=== PATIENT | male | born 1970 | race Caucasian/White ===

== ENCOUNTER 2018-05-22 15:49 | Emergency (ER) | payer OTHER, SELFPAY ==
[2018-05-22 15:49] VITALS: BP 166/105; PULSE 107; RESP 14; TEMP 36.5; O2SAT 99; BMI 25.8
--- NOTE | 2018-05-22 16:06 | EKG12_ITS ---
Test Reason : CHEST PAIN Blood Pressure : / mmHG Vent. Rate : 104 BPM Atrial Rate : 104 BPM P-R Int : 168 ms QRS Dur : 090 ms QT Int : 336 ms P-R-T Axes : 062 057 044 degrees QTc Int : 441 ms Sinus tachycardia Otherwise normal ECG Confirmed by RIGOBERTO COURTNEY MD ([id number]), legal editor NAOMI MARTIN ([id number] on 05/27/2018 2:41:28 PM Referred By: Confirmed By:RIGOBERTO COURTNEY MD
--- NOTE | 2018-05-22 16:07 | RAD_ITS ---
STUDY: X-RAY CHEST REASON FOR EXAM: Male, 47 years old. Chest pain, SOB. TECHNIQUE: Portable chest. COMPARISON: None. FINDINGS: The lungs are clear and expanded. There is no demonstrated pleural abnormality. Normal size heart. Normal mediastinum and shaina. Normal visualized pulmonary arteries. Normal visualized aortic arch and descending thoracic aorta. Mild degenerative changes of the left shoulder are noted. Soft tissues and bony structures are otherwise unremarkable. RAD/Chest 1 View (Portable) IMPRESSION: No acute process. Electronically Signed: Alize Noe MD at 16:30 EDT Tel , Service support ,
[2018-05-22 16:31] LABS: Absolute Lymphocyte Count 1.55 X10^3/ul (0.83-4.51); Basophil# 0.02 X10^3/uL; Basophil% 0.2 % (0-1); Eosinophil# 0.03 X10^3/uL; Eosinophils% 0.3 % (0-5); Lymphocyte # 1.55 X10^3/ul (4.0); Lymphocyte % 17.1 % (19-41); Mean Corp Hgb Conc 34.8 g/gl (32-36); Mean Corpuscular Hgb 28.3 pg (27.0-32.0); Mean Corpuscular Volume 81.4 fL (80-94); Mean Platelet Vol. 9.3 fl (6.2-12.0); Monocyte# 0.46 X10^3/uL; Monocyte% 5.1 % (0-10); Neutrophil # 6.99 X10^3/uL (2.7-7.7); Neutrophil % 77.2 % (47-70); Platelet Count 156 K/mm3 (150-450); RBC Distribution Width SD 38.3 fl (35.1-43.9); Red Blood Count 5.65 M/mm3 (4.6-6.2); White Blood Count 9.1 K/mm3 (4.4-11.0)
[2018-05-22 16:32] LABS: POSITIVE COUNT NO; POSITIVE DIFFERENTIAL NO; POSITIVE MORPHOLOGY NO
[2018-05-22] MEDS: 0.9% Normal Saline 1,000 ML 1000 ML IV (17:02)
[2018-05-22 17:11] LABS: ALB/GLOB Ratio 1.2 RATIO (0.9-2.4); AST(SGOT) 28 U/L (15-37); Alanine Aminotransfer ALT/SGPT 48 U/L (16-61); Albumin, Serum 4.5 g/dL (3.2-5.0); Alkaline Phosphatase 70 U/L (45-117); Anion Gap 8 (5-15); BUN 12 mg/dL (7-18); BUN/Creat Ratio 9.8 RATIO (10-20); Chloride 102 mmol/L (98-107); Creatinine, Serum 1.23 mg/dL (0.70-1.30); EST Glomerular Filtration Rate 67 mL/min (>60); Est Glom Filt Rate - Afr Amer 81 mL/min (>60); Estimated Creatinine Clearance 77.48 ml/min; Globulin 3.8 g/dL (2.2-4.2); Glucose 126 mg/dL (74-106); Lipase 248 U/L (73-393); Potassium 3.8 mmol/L (3.5-5.1); Protein, Total 8.3 g/dL (6.4-8.2); Sodium Level 138 mmol/L (136-145)
[2018-05-22 17:11] LABS: Bacteria 0 SEEN /hpf (None Seen); Mucous, Urine 0 SEEN /hpf (<or=2+); Red Blood Cells-Urine 0 SEEN /hpf (0-5); Squamous Epithelial Cells - UA 0 SEEN /hpf (0-5); White Blood Cells 0 SEEN /hpf (0-5)
[2018-05-22 17:13] LABS: Color, Urine Yellow (Yellow); Glucose, Dipstick Normal (Normal); Ketone-Dipstick Negative (Negative); Leukocyte Esterase-Dipstick Negative /ul (Negative); Nitrite-Dipstick Negative (Negative); Occult Blood-Urine Negative /ul (Negative); Protein-Dipstick Negative (Negative); Urine Bilirubin Dipstick Negative (Negative); Urine Clarity Clear (Clear); Urine Urobilinogen Normal (Normal)
[2018-05-22 17:46] VITALS: BP 146/93; PULSE 73; RESP 12; O2SAT 99
[2018-05-22 18:17] VITALS: BP 158/92; PULSE 68; RESP 14; O2SAT 99
--- NOTE | 2018-05-22 18:29 | ED.DCSUM_ITS ---
- ER Visit Summary Date of Service: 05/22/18 Chief Complaint: Feeling bad History of Present Illness: The patient is a 47 M with multiple complaints. He reports chest pain that started yesterday. It has been constant. Today he has trouble focusing. He feels some anterior neck pain like he is choking. He also has a headache which he describes as numbness around his ears bilaterally. He also reports worsening of his acid reflux and diffuse abdominal pain. He never had this in the past. Nothing seems to make it better or worse. No significant past medical history. He does use marijuana. He does report associated chills and sweats with a dry cough. Physical Examination: Afebrile and vital signs unremarkable except for a blood pressure of 166/105 and heart rate of 107. Patient appears uncomfortable and depressed, but otherwise is in no acute distress. Alert and oriented. Heart regular rate and rhythm on my exam. Lungs clear bilaterally. Abdomen soft and nontender throughout all garibay. No guarding or rebound. Skin appears normal in color without diaphoresis, pallor, or jaundice. Extremities nontender. Test Results: EKG shows sinus rhythm at a rate of 104. CBC and CMP normal. Lipase normal. Urinalysis normal. Troponin normal. Glucose was 126. Chest x- ray showed no acute process. Emergency Department Course and Treatment: Patient was treated with IV fluids and Zofran while awaiting results. Patient had a multitude of complaints and so my initial differential diagnosis was broad. I did check all the above testing, and everything seemed fairly unremarkable. He is otherwise young and healthy. Prior to discharge, I reevaluated him. His vital signs have improved. No new or worsening symptoms. Cranial nerves grossly intact. No focal weakness. Moves all extremities. Speech is normal. No vision changes. No new pains. No nausea. No sweats. Patient declined delta troponin. We discussed risks and benefits of further testing and even hospitalization. I believe he is appropriate for outpatient follow-up. Patient agrees. Stay rested and hydrated. [id number] remedies for symptoms. He may be coming down with an influenza type illness. Treatment Plan: As above Disposition: Discharged Impression: 1. Influenza-like illness This note was generated with [employer] software. It may contain incorrect words, spelling, and punctuation that were not noted in review of the chart prior to signing ED Disposition - Plan for ED Patient: Chief Complaint: Chest Pain Instructions: ED Chest Pain Atypical Unkn Cause Prescriptions: Ibuprofen [Motrin] 800 mg PO TID PRN PRN #20 tab PRN Reason: Pain Referrals: Shahzad Murguia III, MD [STAFF PHYSICIAN] -
[2018-05-22 18:44] VITALS: BP 158/92; PULSE 64; RESP 18; O2SAT 99
== END 2018-05-22 18:45 | disposition home or self-care (01) ==
PROVIDERS: Emergency Provider Emergency Medicine
DX: R51 Headache (principal); R05 Cough; R10.84 Generalized abdominal pain; R07.9 Chest pain, unspecified; R68.83 Chills (without fever); R61 Generalized hyperhidrosis; M54.2 Cervicalgia; K21.9 Gastro-esophageal reflux disease without esophagitis; F12.90 Cannabis use, unspecified, uncomplicated
CPT/HCPCS: 71045; 80053; 81001; 83690; 84484; 85025; 93005; 96360; 99284; J2405

== ENCOUNTER 2024-11-12 09:06 | Emergency (ER) | payer MEDICAID, SELFPAY ==
[2024-11-12 09:07] VITALS: BP 149/89; PULSE 107; RESP 16; TEMP 36.1; O2SAT 98
--- NOTE | 2024-11-12 11:00 | EDS_ITS ---
HPI History of Present Illness Chief Complaint: General Illness Informant: patient Onset/Context/Timing Onset: Days Context: Gradual Onset Timing: Continuous Current Severity: Mild Maximum Severity: Mild Narrative Narrative: 54-year-old male prior cholecystectomy years ago. Denies any past medical history. Please note a cough of phlegm. Also complaining of dysuria. And has had intermittent nausea vomiting diarrhea since Sunday. Says the phlegm is green. Prior similar symptoms: Yes Recent Illness/Hospitalization: No PFSH PFSH Medical History no medical history no medical history Home Medications ?Medication ?Instructions ?Recorded ?Last Taken ?Type ibuprofen 800 mg tablet 800 mg PO TID PRN PRN Pain # 20 tabs 05/22/18 Unknown Rx ondansetron 4 mg disintegrating 4 mg PO Q6H PRN nausea and 11/12/24 Unknown Rx tablet vomiting #7 tabs Allergy/AdvReac Type Severity Reaction Status Date / Time No Known Allergies Allergy Verified 11/12/24 09:10 Social History Smoking Status: Never smoker ROS ROS ED ROS Narrative Cough with green sputum. Nausea vomiting diarrhea. Dysuria. Constitutional Constitutional ED: Denies chills or fever(s) Eyes Eyes: Denies blurry vision ENT ENT ED: Denies ear pain Cardiovascular Cardiovascular: Denies chest pain or palpitations Respiratory/Chest Respiratory/Chest: Reports cough Gastrointestinal Gastrointestinal: Reports diarrhea, nausea and vomiting; Denies abdominal pain, constipation or melena Genitourinary Genitourinary ED: Reports dysuria; Denies hematuria Musculoskeletal Musculoskeletal: Denies arthralgias or back pain Integumentary Denies abscess Neurologic Neurologic: Denies headache(s) Psychiatric Psychiatric: Denies anxiety Endocrine Endocrinology: Denies cold intolerance Hematologic/Lymphatic Hematologic/Lymphatic: Reports none Allergic/Immunologic Allergic/Immunologic ED: Denies mouth swelling, tongue swelling or urticaria EXAM Physical Exam Narrative Exam Narrative: 54-year-old male in hallway chair due to volume and acuity. Vital signs are stable afebrile. Pulse ox 98% on room air no signs of hypoxia. No distress. H EENT exam pupils round react to light. Moist use membranes. Posterior pharynx unremarkable. Neck nontender no lymphadenopathy. No meningismus. Lungs dry cough. No rales rhonchi or wheezing. Equal symmetric. Heart regular rhythm rate about 1 5 no murmur. Chest wall ribs nontender. Abdomen soft nontender. External exam unremarkable. Circumcised. No lymphadenopathy. No hernia or mass. Nontender. No scrotal swelling or mass. This was done in the bathroom since he was in the hallway so we moved him. Moving all 4 extremities. Nontender no edema. Neurological he is awake alert no focal motor deficits. Benign exam. Const Vital Signs: 11/12/24 09:07 11/12/24 10:12 Temperature 96.9 F L Temperature Source Temporal Pulse Rate 107 H Respiratory Rate 16 Respiratory Pattern Normal Blood Pressure 149/89 H Blood Pressure Mean 109 Pulse Ox 98 Oxygen Delivery Method Room Air Positive well nourished and well developed; Negative for obese, cachectic, contractures or unkempt General Appearance ED: well developed and NAD; Negative for unkempt, cachectic, contractures, cyanotic, diaphoretic or pallor Nutritional Appearance: Negative for cachectic or obese HEENT Reports moist mucous membranes Negative for trauma or tenderness Eyes PERRL and EOMs intact bilaterally General Eye ED: Negative for pale conjunctiva or scleral icterus Neck no lymphadenopathy, supple and no JVD General: Negative for tenderness Chest Wall inspection of chest normal and palpation of chest normal Resp normal respiratory effort and clear to auscultation bilaterally Resp Narrative: Dry cough. Effort and Inspection: Negative for retractions Auscultation: Negative for rales, rhonchi, wheezes or diminished lung sounds Cardio regular rhythm, S1 normal heart sound, S2 normal heart sound and no murmurs; Negative for regular rate Rate: tachycardic and other Other Details: Rate of 105. GI normal to inspection, nondistended, normoactive bowel sounds, non-tender, non-di stended and no masses Inspection: Negative for abdominal distention Palpation: soft; Negative for tender or guarding Back/Spine no CVA tenderness General Back: Negative for CVA tenderness Cervical Spine: Negative for cervical spine tenderness Thoracic Spine / Upper Back: Negative for thoracic spinal tenderness or paraspinal muscle tenderness Lumbar Spine / Lower Back: Negative for lumbar spinal tenderness Extremity normal to inspection General Extremety ED: Negative for edema or tenderness General Extremity: Negative for edema Neuro oriented x3 and CN's II-XII intact bilaterally Sensorium / Orientation: alert; Negative for orientation impaired, lethargic or stuporous Motor Exam: strength 5/5 throughout Psych mental status grossly normal Appearance: Negative for unkempt Attitude: No agitated Mood & Affect: Negative for depressed, anxious or tearful Skin no rashes or lesions noted, no wounds and skin turgor normal General Skin Exam: elasticity normal; Negative for jaundice or pallor Lesions: No lesion noted Rashes: No rashes noted Trauma: Negative for abrasion Wounds: Negative for wounds noted MDM MDM MDM Narrative Medical decision making narrative: 54-year-old male URI symptoms. He will receive a liter of fluid. His COVID flu and RSV is negative a chest x-ray and screening labs. He is also complaining of dysuria his external exam is unremarkable. Will check a UA. His overall exam is very benign. Repeat exam at 1:32 PM patient is doing better. His labs are unremarkable will be treated as a viral syndrome. Fluids and rest. Follow-up as needed return if worse. Patient I discussed his test results and outpatient plan. History & Record Review Discussion w/independent historian: Patient Lab Data Attestation: I reviewed the patient's lab results. Lab results narrative: COVID, flu and RSV are negative. Chest x-ray negative. CBC normal white count of 5 H&H. Of 14 and 41. Platelets slightly low at 128. Electrolytes show gap 11. BUN and creatinine of 14 and 1.2. Glucose of 90. UA negative. Labs: Laboratory Results - last 24 hr 11/12/24 12:12 WBC 5.7 RBC 4.96 Hgb 14.0 Hct 41.6 MCV 83.9 MCH 28.2 MCHC 33.7 RDW Std Deviation 36.8 RDW Coeff of [place] 12.2 Plt Count 128 L MPV 9.2 Immature Gran % (Auto) 0.200 Neut % (Auto) 67.6 Lymph % (Auto) 16.9 L [place] % (Auto) 13.6 H Eos % (Auto) 1.0 Baso % (Auto) 0.7 Absolute Neuts (auto) 3.9 Absolute Lymphs (auto) 0.97 Nucleated RBC % 0 Sodium 137 Potassium 4.2 Chloride 101 Carbon Dioxide 25.3 Anion Gap 11 BUN 14 Creatinine 1.21 H Est GFR (MDRD) Non-Af 72 BUN/Creatinine Ratio 11.8 Glucose 90 Calcium 8.6 Radiography Chest X-Ray - ED: 2 View, Read by ED Physician, Read by Radiologist, Heart, Lungs, Mediastinum, Bony Structures, No Acute Disease and Chronic Changes Diagnostic Testing: Clinical Impression(s) from Imaging Studies Chest X-Ray 11/12/24 11:25 IMPRESSION: No active cardiopulmonary disease.. Reading Location: [place] [id number] Chest x-ray, 2 views, AP and lateral, interpreted by myself and radiology shows no acute abnormality. Normal cardiac silhouette. Normal lung garibay. No pneumonia. No effusions. Discharge Plan Triage Chief Complaint: General Illness ED Provider: Romeo Serrano Dx/Rx/DC Orders Clinical Impression: Viral syndrome Instructions: ED Viral Syndrome (Adult) Prescriptions: New ondansetron 4 mg tablet,disintegrating 4 mg PO Q6H PRN (Reason: nausea and vomiting) Qty: 7 0RF No Action ibuprofen 800 MG tablet 800 mg PO TID PRN PRN (Reason: Pain) Qty: 20 0RF Primary Care Provider: Robinson Corrigan Referrals: Robinson Corrigan MD [Primary Care Provider] - 3-5 Days if not improving Care Physician,No Primary [Non-Staff] - Activity Restrictions/Additional Instructions: Your labs look good. This appears to be a viral illness. Plenty of fluids and rest. Increase your diet slowly as tolerated. Zofran as needed for nausea. Follow-up as needed. Print Language: [place] Disposition Disposition: Home, Self Care
[2024-11-12] MEDS: 0.9% Normal Saline (1000mL) 1,000 ML 1000 ML IV (11:21)
--- NOTE | 2024-11-12 11:25 | RAD_ITS ---
PROCEDURE: CHEST PA AND LATERAL REASON FOR EXAM: Cough. Day 3 of not feeling well. TECHNIQUE: Frontal and lateral views of the chest. COMPARISON: 05/22/2018 FINDINGS: Lungs: Lungs clear of pneumonia and congestion. Pleura: No pleural effusions, thickening, or pneumothorax. Heart: Normal in size and configuration. Mediastinum/Opal: Unremarkable. Great vessels: Unremarkable. Bones/soft tissues: Unremarkable. RAD/Chest PA and Lateral IMPRESSION: No active cardiopulmonary disease.. Reading Location: [place] [id number]
[2024-11-12 12:22] LABS: Absolute Lymphocyte Count 0.97 X10^3/uL (0.83-4.51); Absolute Neutrophil Count 3.9 X10^3/uL (2.0-7.7); Basophil# 0.04 X10^3/uL; Basophil% 0.7 % (0-1); Eosinophil# 0.06 X10^3/uL; Hematocrit 41.6 % (40-54); Lymphocyte # 0.97 X10^3/ul (0.83-4.51); Lymphocyte % 16.9 % (19-41); Mean Corp Hgb Conc 33.7 g/dL (32-36); Mean Corpuscular Hgb 28.2 pg (27.0-32.0); Mean Corpuscular Volume 83.9 fL (80-94); Mean Platelet Vol. 9.2 fl (6.2-12.0); Monocyte# 0.78 X10^3/uL; Monocyte% 13.6 % (0-10); NRBC Flagged by Analyzer 0 % (0-5); Neutrophil # 3.88 X10^3/uL (2.7-7.7); Neutrophil % 67.6 % (47-70); Platelet Count 128 K/mm3 (150-450); RBC Distribution Width CV 12.2 % (11.6-14.6); RBC Distribution Width SD 36.8 fl (35.1-43.9); Red Blood Count 4.96 M/mm3 (4.6-6.2); White Blood Count 5.7 K/mm3 (4.4-11.0)
[2024-11-12 12:38] LABS: Anion Gap 11 (5-15); BUN 14 mg/dL (4-19); BUN/Creat Ratio 11.8 RATIO (10-20); Calcium,Total 8.6 mg/dL (7.6-11.0); Carbon Dioxide 25.3 mmol/L (21.0-32.0); Chloride 101 mmol/L (98-108); Creatinine, Serum 1.21 mg/dL (0.70-1.20); EST Glomerular Filtration Rate 72 (>60); Glucose 90 mg/dL (70-99); Potassium 4.2 mmol/L (3.3-5.1); Sodium Level 137 mmol/L (133-145)
[2024-11-12] MEDS: Acetaminophen 500 MG Tablet 1000 MG PO (12:49)
[2024-11-12 13:10] LABS: Squamous Epithelial Cells - UA 0 SEEN /hpf (0-5)
[2024-11-12 13:12] LABS: Color, Urine Yellow (Yellow); Glucose, Dipstick Normal (Normal); Ketone-Dipstick 15 mg/dl (Negative); Leukocyte Esterase-Dipstick 25 /ul (Negative); Nitrite-Dipstick Negative (Negative); Occult Blood-Urine 150 /ul (Negative); Protein-Dipstick 30 mg/dl (Negative); Urine Bilirubin Dipstick 1 mg/dL (Negative); Urine Clarity Clear (Clear); Urine Urobilinogen 1 mg/dl (Normal)
[2024-11-12 13:18] LABS: Red Blood Cells-Urine 0-5 SEEN /hpf (0-5)
[2024-11-12 13:19] LABS: Bacteria 1+ /hpf (None Seen); Mucous, Urine 1+ /hpf (<or=2+); White Blood Cells 0-5 SEEN /hpf (0-5)
[2024-11-12 13:42] VITALS: BP 132/78; PULSE 81; RESP 16; TEMP 36.6; O2SAT 95
== END 2024-11-12 13:47 | disposition home or self-care (01) ==
PROVIDERS: Emergency Provider Emergency Medicine; PCP Family Medicine; Visit Provider Emergency Medicine
DX: B34.9 Viral infection, unspecified (principal); Z90.49 Acquired absence of other specified parts of digestive tract
CPT/HCPCS: 71046; 80048; 81001; 85025; 87631; 96360; 99283; A4216

== ENCOUNTER 2025-01-08 14:54 | Emergency (ER) | payer MEDICAID, SELFPAY ==
[2025-01-08 14:55] VITALS: BP 132/90; PULSE 71; RESP 16; TEMP 36.3; O2SAT 96; BMI 23.7
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
[2025-01-08] MEDS: Acetaminophen 500 MG Tablet 1000 MG PO (15:28)
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
[2025-01-08] MEDS: Ketorolac 30 MG/ML Syringe IM (16:44)
[2025-01-08 17:02] VITALS: BP 128/71; PULSE 58; RESP 18; TEMP 36.2; O2SAT 96
== END 2025-01-08 17:03 | disposition home or self-care (01) ==
PROVIDERS: Emergency Provider Surgery; PCP Family Medicine; Visit Provider Surgery
DX: S16.1XXA Strain of muscle, fascia and tendon at neck level, initial encounter (principal); Y92.410 Unspecified street and highway as the place of occurrence of the external cause; R51.9 Headache, unspecified; V49.40XA Driver injured in collision with unspecified motor vehicles in traffic accident, initial encounter
CPT/HCPCS: 70450; 72125; 96372; 99282